=== PATIENT | female | born 1975 | race American Indian/Alaskan Native ===

== ENCOUNTER 2021-12-30 07:55 | Day surgery (SDC) | payer OTHER ==
[2021-12-28 10:09] LABS: Basophils % (Auto) 0.7 % (0.0-1.8); Eosinophils # (Auto) 0.5 K/mm3 (0.0-0.4); Eosinophils % (Auto) 6.3 % (0.0-4.3); Hematocrit 33.2 % (30.3-42.9); Hemoglobin 10.9 gm/dl (10.1-14.3); Lymphocytes # (Auto) 1.4 K/mm3 (1.2-5.4); Lymphocytes % (Auto) 19.1 % (13.4-35.0); Mean Corpuscular HGB Conc 33 % (30-34); Mean Corpuscular Volume 88 fl (79-97); Monocytes # (Auto) 0.4 K/mm3 (0.0-0.8); Monocytes % (Auto) 5.9 % (0.0-7.3); Platelet Count 304 K/mm3 (140-440); Red Blood Count 3.76 M/mm3 (3.65-5.03); Red Cell Distribution Width 13.4 % (13.2-15.2)
[2021-12-28 10:19] LABS: BUN/Creatinine Ratio 16; Blood Urea Nitrogen 13 mg/dL (7-17); Hemolysis Index 0
--- NOTE | 2021-12-28 13:42 | Anesthesia Consultation ---
Anesthesia Consult and Med Hx Date of service: 12/30/21 - Airway Anesthetic Teeth Evaluation: Good ROM Head & Neck: Adequate Mental/Hyoid Distance: Adequate Mallampati Class: Class II Intubation Access Assessment: Good - Pre-Operative Health Status ASA Pre-Surgery Classification: ASA3 Proposed Anesthetic Plan: General Nerve Block: TAP - Pulmonary Hx Smoking: No Hx Sleep Apnea: No - Cardiovascular System Hx Hypertension: Yes - Central Nervous System Hx Psychiatric Problems: No - Gastrointestinal Hx Gastroesophageal Reflux Disease: No - Hematic Hx Anemia: Yes - Other Systems Hx Cancer: No Hx Obesity: Yes (BMI 47)
[~2021-12-30 07:55] MED LIST: ACETAMINOPHEN 500 MG TAB PO ONE; CELECOXIB 200 MG CAP PO NR; LACTATED RINGERS 1,000 ML IV SCH; MAGNESIUM OXIDE 400 MG TAB PO ONE; MIDAZOLAM 2 MG/2 ML INJ IV NR; fentaNYL 100 MCG/2 ML INJ IV ONE
[2021-12-30] MEDS ORDERED: ACETAMINOPHEN 500 MG TAB ONE (08:20)
[2021-12-30] MEDS ORDERED: MAGNESIUM OXIDE 400 MG TAB PO ONE (08:21)
[2021-12-30] MEDS ORDERED: fentaNYL 100 MCG/2 ML INJ ONE ×2 (08:22→13:49)
[2021-12-30] MEDS ORDERED: ONDANSETRON 4 MG/2 ML INJ IV PRN (08:30)
[2021-12-30] MEDS ORDERED: HYDROmorphone 0.5 MG/0.5 ML INJ IV PRN ×2 (08:30)
[2021-12-30] MEDS ORDERED: NEOMY 40 MG/POLYMYXIN B 200,000 UNITS/ML (GU) AMPULE IR ONE ×2 (09:00→12:05)
[2021-12-30] MEDS ORDERED: METHYLENE BLUE 50 MG/10 ML AMP ONE (09:00)
[2021-12-30] MEDS ORDERED: LIDOCAINE MPF (2%) 20 MG/1 ML VIAL 5 ML ONE (09:07)
[2021-12-30] MEDS ORDERED: ROCURONIUM 50 MG/5 ML INJ IV ONE ×2 (09:07→13:12)
[2021-12-30] MEDS ORDERED: KETAMINE/STERILE WATER 50 MG/ML SYRINGE ONE (09:07)
[2021-12-30] MEDS ORDERED: ONDANSETRON 4 MG/2 ML INJ ONE (09:07)
[2021-12-30] MEDS ORDERED: KETOROLAC 30 MG/1 ML INJ ONE (09:07)
[2021-12-30] MEDS ORDERED: dexAMETHasone 20 MG/5 ML VIAL ONE (09:07)
[2021-12-30] MEDS ORDERED: propofoL 200 MG/20 ML VIAL IV ONE (09:07)
[2021-12-30] MEDS ORDERED: BUPIVACAINE/PF (0.25%) 2.5 MG/ML 30 ML VIAL INFILTRATI ONE (09:26)
[2021-12-30] MEDS ORDERED: dexAMETHasone 4 MG/ML VIAL ONE (09:26)
--- NOTE | 2021-12-30 10:19 | Short Stay Summary ---
Short Stay Documentation Date of service: 12/30/21 Narrative H&P: 46y/o with symptomatic uterine fibroids. The patient had a pelvic ultrasound that demonstrated an enlarged fibroid uterus measuring 12cm with 6.3cm dominant leiomyoma. She reports vaginal bleeding and pain. The patient has elected for definitive surgical management. - History Principal diagnosis: symptomatic uterine fibroids Past Medical History: other (morbid obesity; leiomyomas) Past Surgical History: Other (UFE) Social history: single - Allergies and Medications Current Medications: Allergies No Known Allergies Allergy (Unverified 12/27/21 10:18) Home Medications Medication Instructions Recorded Confirmed Last Taken Type Ergocalciferol [Vitamin D2] 1 cap PO 2XW 12/27/21 12/30/21 12/26/21 09:00 History Ferrous Sulfate [Feosol] 325 mg PO QDAY 12/27/21 12/30/21 12/29/21 09:00 History Telmisartan [Micardis] 20 mg PO DAILY 12/27/21 12/30/21 12/29/21 09:00 History hydroCHLOROthiazide [HCTZ] 25 mg PO DAILY PRN 12/27/21 12/30/21 12/29/21 09:00 History Testosterone [Testim 1%] 1 applicatio TD QAM 12/28/21 12/30/21 12/23/21 09:00 History Active Medications Celecoxib (Celecoxib 200 Mg Cap) 400 mg PO PREOP NR Stop: 12/30/21 23:59 Last Admin: 12/30/21 08:55 Dose: 400 mg Hydromorphone HCl (Hydromorphone 0.5 Mg/0.5 Ml Inj) 0.5 mg IV Q10MIN PRN PRN Reason: Pain , Severe (7-10) Stop: 12/30/21 18:00 Hydromorphone HCl (Hydromorphone 0.5 Mg/0.5 Ml Inj) 0.25 mg IV Q10MIN PRN PRN Reason: Pain, Moderate (4-6) Stop: 12/30/21 18:00 Lactated Ringer's (Lactated Ringers) 1,000 mls @ 125 mls/hr IV DIRECT DENAE Last Admin: 12/30/21 09:00 Dose: 125 mls/hr Cefazolin Sodium 3 gm/ Sodium (Chloride) 100 mls @ 100 mls/30 min IV PREOP NR; Protocol Stop: 12/30/21 23:59 Midazolam HCl (Midazolam 2 Mg/2 Ml Inj) 2 mg IV PREOP NR Stop: 12/30/21 23:59 Ondansetron HCl (Ondansetron 4 Mg/2 Ml Inj) 4 mg IV ONCE PRN PRN Reason: Nausea And Vomiting Stop: 12/30/21 18:00 - Physical exam General appearance: no acute distress Integumentary: no rash HEENT: Atraumatic Lungs: Clear to auscultation Breasts: deferred Heart: Regular rate Gastrointestinal: normal Female Genitourinary: deferred Rectal Exam: deferred Extremities: no ischemia - Brief post op/procedure progress note Date of procedure: 12/30/21 Pre-op diagnosis: Symptomatic uterine fibroids Post-op diagnosis: same Procedure: Robotic hysterectomy Left salpingo-oophorectomy Lysis of adhesions Anesthesia: GETA Surgeon: ALONSO KAUR Estimated blood loss: other (400 mL) Pathology: list (Uterus, cervix, leiomyomas, bilateral tubes, left ovary) Specimen disposition: to lab Condition: stable - Hospital course Hospital course: The patient was admitted the day of surgery underwent a robotic hysterectomy. Please see operative note for details of surgery. Her postoperative course was uneventful. - Disposition Condition at discharge: Good Disposition: 01 HOME / SELF CARE / HOMELESS Short Stay Discharge Plan Activity: no restrictions (Pelvic rest for 6 weeks) Diet: regular Additional Instructions: Schedule follow-up with Dr. Kaur in 4 weeks Prescriptions: Docusate Sodium [Colace] 100 mg PO BID PRN #60 capsule PRN Reason: Constipation Ibuprofen [Motrin] 800 mg PO Q8HR PRN #60 tablet PRN Reason: Pain , Severe (7-10) oxyCODONE /ACETAMINOPHEN [Percocet 5/325] 1 tab PO Q6HR PRN #30 tablet PRN Reason: Pain
[2021-12-30] MEDS ORDERED: SODIUM CHLORIDE 0.9% 100 ML ONE (11:32)
[2021-12-30] MEDS ORDERED: VASOPRESSIN 20 UNIT/1 ML INJ ONE (11:33)
[2021-12-30] MEDS ORDERED: HYDROmorphone 1 MG/1 ML INJ ONE (11:35)
[2021-12-30] MEDS ORDERED: SODIUM CHLORIDE 0.9% 100 ML IVPB IV ONE (12:10)
[2021-12-30] MEDS ORDERED: SODIUM CHLORIDE 0.9% 500 ML IVPB IRRIGATION ONE (12:10)
[2021-12-30] MEDS ORDERED: VASOPRESSIN 20 UNIT/1 ML INJ IV ONE (12:10)
[2021-12-30] MEDS ORDERED: SUGAMMADEX SODIUM 200 MG/2 ML VIAL IV ONE (12:43)
[2021-12-30] MEDS ORDERED: LACTATED RINGERS 1,000 ML ONE (13:12)
--- NOTE | 2021-12-30 14:41 | Operative Report ---
Operative Report Operative Report: Date of surgery: December 30, 2021 Preoperative diagnoses: Symptomatic uterine fibroid Postoperative diagnoses: Same as above; pelvic adhesive disease; left ovarian mass Procedure: Robotic hysterectomy; bilateral salpingectomy; left oophorectomy; lysis of adhesions Surgeon: Carina Russo M.D. Middleware Engineer: Khalida Keller Anesthesia: Gen. endotracheal anesthesia Estimated blood loss: 400 mL Pathology: Uterus, cervix, leiomyomas, bilateral tubes, left ovary Indication: 46-year-old -0-2-0 with a history of symptomatic uterine fibroids. The patient had findings of enlarged fibroid uterus and elected to undergo definitive surgical management Procedure: The patient was taken to the operating room and given general endotracheal anesthesia without complication after a time out was performed confirming the surgery and identity of the patient. She was prepped and draped in a normal sterile fashion. A bivalve speculum was placed in the patient's vagina and a single-tooth tenaculum placed on the anterior lip of the cervix. The uterus was sounded with the uterine sound. A stay suture with 0-vicryl was placed at 12 o'clock on the anterior cervix. A [employer] uterine manipulator was placed in the bivalve speculum was then removed. A warm laparotomy sponge was placed in the vagina. Attention was then turned to the patient's abdomen where a 12millimeter supra umbilical skin incision was then made. A Veress needle was placed and peritoneal entry was verified water-filled syringe. Insufflation of the peritoneal cavity was performed with CO2 gas. The 12 mm trocar was then placed under direct visualization. An additional 8 mm robotic trocar was placed on the patient's left and right lateral side just opposite of the supraumbilical trocar. An additional 5 mm right lateral trocar was then placed as the accessory port. The supraumbilical 12 mm trocar site was closed with the Bobby Ramos device and 0-vicryl suture. The patient was then placed in steep Trendelenburg. The da [employer] robot was then engaged. A fenestrated forcep was placed in arm 2 and a vessel sealer was placed in arm 1. General survey of the abdomen and pelvis revealed a markedly enlarged fibroid uterus with multiple leiomyomas the left ovary was significantly enlarged. There were multiple adhesions to the posterior aspect of the uterus and the anterior peritoneum was adherent to the lower uterine segment of the uterus. The uterus was adherent to the left pelvic sidewall. the surgeon then transferred to the surgical console. Lysis of adhesions had to be performed in order to detach the uterus from the left pelvic sidewall with the monopolar scissors. A myomectomy was performed after injecting diluted Pitressin to decompress the uterus to improve visualization. The bowel adhesions to the posterior uterus were also lysed. The mesosalpinx was then isolated on the right. The vessel sealer was used to coagulate the mesosalpinx which was then transected. The tube was transected from the ovary. The tubo-ovarian ligament was then coagulated and transected. The round ligament was then coagulated and transected also. The vesicouterine peritoneum was then entered from the patient's right side. The uterine vessels were then coagulated with the vessel sealer. The vessels were then transected . Attention was then turned to the patient's left side. Secondary to the large nature of the left ovary the infundibulopelvic ligament was isolated coagulated and transected. Multiple adhesions had to be lysed in order to retract the adherent adnexa from the pelvic sidewall. The vesical peritoneum was then entered from the left and joined in the midline. Peritoneum was reflected off of the lower uterine segment. Uterine vessels were then coagulated and then transected. The blood supply to the uterus was adequately contained. Secondary to the adhesions of the lower aspect of the posterior cervix could not be clearly identified so the decision was made to proceed first with a supracervical hysterectomy once the blood supply was contained. Visualization was improved once the corpus uterus was removed. The V care ring was visualized. Posterior colpotomy was created with the monopolar scissors. The incision was continued circumferentially until anterior colpotomy was made. The cervix and uterus were amputated from the vaginal cuff. The uterus was then removed along with the tubes bilaterally, leiomyomas, and the left ovary through the vagina and a warm laparotomy sponge was placed and maintain the pneumoperitoneum. The vaginal cuff was then closed in a running fashion with V lock suture. Irrigation of the pelvis was performed. Surgicel powder was applied to the incision. The [employer] robot was undocked. The trocars were removed and the insuffliation was released. The skin was then reapproximated with 4-0 Monocryl. The tissue was sent to pathology which included the cervix, bilateral tubes, leiomyomas, left ovary and uterus. The patient was then successfully extubated. She was then taken to the recovery room in stable condition. All sponge laps and needle counts were correct x2.
[2021-12-30 17:30] VITALS: BP 148/86
--- NOTE | 2021-12-30 18:03 | Post Anesthesia Evaluation ---
- Post Anesthesia Evaluation Patient Participated: Yes Airway Patent: Yes Stable Respiratory Function: Yes Nausea/Vomiting: No Temp > 96.8F: Yes Pain Manageable: Yes Adequeate Hydration: Yes Anesthesia Complications: No Block Receding Appropriately: Yes Patient on Ventilator: No
== END 2021-12-30 16:40 | disposition home or self-care (01) ==
LOC: OR 07:55
PROVIDERS: ATTEND Obstetrics & Gynecology
DX: N93.8 Other specified abnormal uterine and vaginal bleeding (principal); D25.9 Leiomyoma of uterus, unspecified; N80.0 Endometriosis of uterus; N85.8 Other specified noninflammatory disorders of uterus; D64.9 Anemia, unspecified; I10 Essential (primary) hypertension; E66.9 Obesity, unspecified; Z20.822 Contact with and (suspected) exposure to COVID-19; Z98.890 Other specified postprocedural states; Z79.899 Other long term (current) drug therapy; Z90.710 Acquired absence of both cervix and uterus; Z68.42 Body mass index [BMI] 45.0-49.9, adult
CPT/HCPCS: 36415; 58573; 64488; 80048; 84703; 85025; 86850; 86900; 86901; 88307; J0690; J1100; J1170; J1885; J2250; J2405; J2704; J3010; J3490; J7040; J7120; U0003; Q9968

== ENCOUNTER 2021-12-31 16:52 | Emergency (ER) | payer OTHER ==
--- NOTE | 2021-12-31 18:03 | XRay Report ---
CHEST 1 VIEW INDICATION / CLINICAL INFORMATION: sob. COMPARISON: None available. FINDINGS: SUPPORT DEVICES: None. HEART / MEDIASTINUM: No significant abnormality. LUNGS / PLEURA: Haziness is seen in the right lung base which may be due to overlying breast tissue r ather than true pulmonary abnormality. No pneumothorax. ADDITIONAL FINDINGS: There is questionable free air underneath the right hemidiaphragm. IMPRESSION: 1. Questionable free air noted underneath the right hemidiaphragm. 2. Haziness seen in the right lung base. Whether this represents extrathoracic soft tissue versus johanne e right basilar pleural-parenchymal disease is unclear. CT scan may provide additional evaluation for the questionable free air as well as for findings in the right right lung base. Signer Name: Kim Hudson MD Signed: 12/31/2021 5:58 PM Workstation Name: [id number]
[2021-12-31 18:26] LABS: Basophils # (Auto) 0.1 K/mm3 (0.0-0.1); Basophils % (Auto) 0.6 % (0.0-1.8); Eosinophils % (Auto) 0.3 % (0.0-4.3); Hematocrit 30.4 % (30.3-42.9); Hemoglobin 9.9 gm/dl (10.1-14.3); Lymphocytes # (Auto) 1.6 K/mm3 (1.2-5.4); Mean Corpuscular HGB Conc 32 % (30-34); Mean Corpuscular Volume 88 fl (79-97); Monocytes # (Auto) 0.6 K/mm3 (0.0-0.8); Monocytes % (Auto) 6.4 % (0.0-7.3); Platelet Count 286 K/mm3 (140-440); Red Blood Count 3.45 M/mm3 (3.65-5.03); Red Cell Distribution Width 13.7 % (13.2-15.2)
[2021-12-31 18:41] LABS: BUN/Creatinine Ratio 11; Blood Urea Nitrogen 10 mg/dL (7-17); Calcium 8.8 mg/dL (8.4-10.2); Hemolysis Index 2
--- NOTE | 2021-12-31 19:16 | Emergency Department Report ---
ED Shortness of Breath HPI - General Chief Complaint: Dyspnea/Respdistress Stated Complaint: SHORTNESS OF BREATH Time Seen by Provider: 12/31/21 17:27 Source: patient Mode of arrival: Ambulatory Limitations: No Limitations - History of Present Illness Initial Comments: 46-year-old female with a past medical history of obesity hypertension presents to the hospital complaining of shortness of breath today. Yesterday patient had a robotic total hysterectomy performed by Dr. Rasheed. Patient states that she is only having mild vaginal spotting and pain has improved today. This was an outpatient procedure. Today while sitting on a couch she developed shortness of breath that is somewhat worse with exertion. She complains of a mild nonproductive cough without fever. Recent labs reviewed and patient had a hemoglobin of 10.9 and a negative COVID test performed on December 28. Patient did have an episode of some left-sided chest pain that improved with belching and has not reoccurred. Patient denies current calf tenderness, leg edema, or his tory of PE/DVT - Related Data Home Medications Medication Instructions Recorded Confirmed Last Taken Ergocalciferol [Vitamin D2] 1 cap PO 2XW 12/27/21 12/30/21 12/26/21 09:00 Ferrous Sulfate [Feosol] 325 mg PO QDAY 12/27/21 12/30/21 12/29/21 09:00 Telmisartan [Micardis] 20 mg PO DAILY 12/27/21 12/30/21 12/29/21 09:00 hydroCHLOROthiazide [HCTZ] 25 mg PO DAILY PRN 12/27/21 12/30/21 12/29/21 09:00 Testosterone [Testim 1%] 1 applicatio TD QAM 12/28/21 12/30/21 12/23/21 09:00 Previous Rx's Medication Instructions Recorded Last Taken Type Docusate Sodium [Colace] 100 mg PO BID PRN #60 capsule 12/30/21 Unknown Rx Ibuprofen [Motrin] 800 mg PO Q8HR PRN #60 tablet 12/30/21 Unknown Rx oxyCODONE /ACETAMINOPHEN [Percocet 1 tab PO Q6HR PRN #30 tablet 12/30/21 Unknown Rx 5/325] Allergies Allergy/AdvReac Type Severity Reaction Status Date / Time No Known Allergies Allergy Unverified 12/27/21 10:18 ED Review of Systems ROS: Stated complaint: SHORTNESS OF BREATH Other details as noted in HPI Comment: All other systems reviewed and negative ED Past Medical Hx - Past Medical History Previous Medical History?: Yes Hx Hypertension: Yes - Surgical History Past Surgical History?: Yes Additional Surgical History: Robotic hysterectomy - Social History Smoking Status: Never Smoker - Medications Home Medications: Home Medications Medication Instructions Recorded Confirmed Last Taken Type Ergocalciferol [Vitamin D2] 1 cap PO 2XW 12/27/21 12/30/21 12/26/21 09:00 H istory Ferrous Sulfate [Feosol] 325 mg PO QDAY 12/27/21 12/30/21 12/29/21 09:00 History Telmisartan [Micardis] 20 mg PO DAILY 12/27/21 12/30/21 12/29/21 09:00 History hydroCHLOROthiazide [HCTZ] 25 mg PO DAILY PRN 12/27/21 12/30/21 12/29/21 09:00 History Testosterone [Testim 1%] 1 applicatio TD QAM 12/28/21 12/30/21 12/23/21 09:00 History Docusate Sodium [Colace] 100 mg PO BID PRN #60 capsule 12/30/21 Unknown Rx Ibuprofen [Motrin] 800 mg PO Q8HR PRN #60 tablet 12/30/21 Unknown Rx oxyCODONE /ACETAMINOPHEN [Percocet 1 tab PO Q6HR PRN #30 tablet 12/30/21 Unknown Rx 5/325] ED Physical Exam - General Limitations: No Limitations - Other Other exam information: General: No acute distress Head: Atraumatic Eyes: normal appearance ENT: Moist mucous membranes Neck: Normal appearance, no midline tenderness Chest: Clear to auscultation bilaterally, chest wall nontender CV: Regular rate and rhythm Abdomen: Soft, normal bowel sounds, very mild suprapubic tenderness, no ndistended, no rebound or guarding Back: Normal inspection Extremity: Normal inspection, full range of motion, no calf tenderness or leg edema Neuro: Alert O x 3, no facial asymmetry, speech clear, no gross motor sensory deficit Psych: Appropriate behavior Skin: No rash ED Course Vital Signs 12/31/21 17:07 Temperature 98.8 F Pulse Rate 100 H Respiratory 24 Rate Blood Pressure 138/75 [Right] O2 Sat by Pulse 96 Oximetry - Reevaluation(s) Reevaluation #1: 12/31/21 20: 15 Room air saturation 99% ED Medical Decision Making - Lab Data Result diagrams: 12/31/21 17:46 12/31/21 17:46 Lab Results 12/31/21 12/31/21 12/31/21 Range/Units 17:46 17:46 17:46 WBC 9.5 (4.5-11.0) K/mm3 RBC 3.45 L (3.65-5.03) M/mm3 Hgb 9.9 L (10.1-14.3) gm/dl Hct 30.4 (30.3-42.9) % MCV 88 (79-97) fl MCH 29 (28-32) pg MCHC 32 (30-34) % RDW 13.7 (13.2-15.2) % Plt Count 286 (140-440) K/mm3 Lymph % (Auto) 17.0 (13.4-35.0) % [place] % (Auto) 6.4 (0.0-7.3) % Eos % (Auto) 0.3 (0.0-4.3) % Baso % (Auto) 0.6 (0.0-1.8) % Lymph # (Auto) 1.6 (1.2-5.4) K/mm3 [place] # (Auto) 0.6 (0.0-0.8) K/mm3 Eos # (Auto) 0.0 (0.0-0.4) K/mm3 Baso # (Auto) 0.1 (0.0-0.1) K/mm3 Seg Neutrophils % 75.7 H (40.0-70.0) % Seg Neutrophils # 7.2 (1.8-7.7) K/mm3 Sodium 138 (137-145) mmol/L Potassium 3.8 (3.6-5.0) mmol/L Chloride 104.1 (98-107) mmol/L Carbon Dioxide 26 (22-30) mmol/L Anion Gap 12 mmol/L BUN 10 (7-17) mg/dL Creatinine 0.9 (0.6-1.2) mg/dL Estimated GFR > 60 ml/min BUN/Creatinine Ratio 11 % Glucose 92 (65-100) mg/dL Calcium 8.8 (8.4-10.2) mg/dL NT-Pro-B Natriuret Pep 358.5 (0-450) pg/mL - EKG Data -: EKG Interpreted by Me EKG shows normal: sinus rhythm, ST-T waves (No STEMI or ST elevation) Rate: normal (79) - Radiology Data Radiology results: report reviewed CHEST 1 VIEW INDICATION / CLINICAL INFORMATION: sob. COMPARISON: None available. FINDINGS: SUPPORT DEVICES: None. HEART / MEDIASTINUM: No significant abnormality. LUNGS / PLEURA: Haziness is seen in the right lung base which may be due to overlying breast tissue rather than true pulmonary abnormality. No pneumothorax. ADDITIONAL FINDINGS: There is questionable free air underneath the right hemidiaphragm. IMPRESSION: 1. Questionable free air noted underneath the right hemidiaphragm. 2. Haziness seen in the right lung base. Whether this represents extrathoracic soft tissue versus true right basilar pleural-parenchymal disease is unclear. CT scan may provide additional evaluation for the questionable free air as well as for findings in the right right lung base. CTA CHEST WITH CONTRAST INDICATION / CLINICAL INFORMATION: sob, recent hysterectomy. TECHNIQUE: Axial CT images were obtained through the chest after injection of IV contrast. 3 plane MIP and/or 3D reconstructions were produced. All CT scans at this location are performed using CT dose reduction for ALARA by means of automated exposure control. COMPARISON: None available. FINDINGS: PULMONARY EMBOLUS: None. THORACIC AORTA: No significant abnormality. HEART: No significant abnormality. CORONARY ARTERY CALCIFICATION: Absent -- None. MEDIASTINUM / ADRIANA: No significant abnormality. PLEURA: No pleural effusion. No pneumothorax. LUNGS: No acute air space or interstitial disease. Atelectatic changes are noted in the lung bases. ADDITIONAL FINDINGS: None. UPPER ABDOMEN: Small amount of free air is noted in the included upper abdomen. There is also a small amount of gas in the anterior abdominal deep subcutaneous fat.. SKELETAL STRUCTURES: No significant osseous abnormality. IMPRESSION: 1. No CT evidence for pulmonary embolism. 2. Lungs are clear aside from mild atelectatic changes in the bases. 3. Upper abdominal pneumoperitoneum and gas in the anterior abdominal wall is likely related to recent surgery given the history of recent hysterectomy. - Medical Decision Making 46-year-old beast female presents to the hospital with postoperative dyspnea. CT angiogram negative for pulmonary embolism. Mild atelectasis noted as well as intraperitoneal air from recent laparoscopic procedure. Patient has mild anemia with hemoglobin 9.9 and does not require blood transfusion at this time. EKG unremarkable without complaints of chest pain. No hypoxia noted. Initial tachycardia during triage improved spontaneously. I suspect that dyspnea may be related to increased intra-abdominal pressure from abdominal pain and mild atelectasis. Incentive spirometer with teaching will be provided. Outpatient follow-up encouraged Critical Care Time: No Critical care attestation.: If time is entered above; I have spent that time in minutes in the direct care of this critically ill patient, excluding procedure time. ED Disposition Clinical Impression: Dyspnea, Status post laparoscopic hysterectomy, Atelectasis, Anemia Disposition: HOME / SELF CARE / HOMELESS Is pt being admited?: No Does the pt Need Aspirin: No Condition: Stable Instructions: Shortness of Breath, Adult, [id number], How to Use an Incentive Spirometer, Atelectasis, Adult Additional Instructions: Use incentive spirometer as directed. Follow-up with your doctor or doctor/clinic provided. Return if symptoms worsen as indicated by your discharge instructions. Referrals: JENNIFER CHANDLER MD [Staff Physician] - 3-5 Days (Primary care doctor) ALONSO KAUR MD [Staff Physician] - 3-5 Days ([employer] doctor) Time of Disposition: 20:28
--- NOTE | 2021-12-31 19:39 | Cat Scan Report ---
CTA CHEST WITH CONTRAST INDICATION / CLINICAL INFORMATION: sob, recent hysterectomy. TECHNIQUE: Axial CT images were obtained through the chest after injection of IV contrast. 3 plane ME P and/or 3D reconstructions were produced. All CT scans at this location are performed using CT dose reduction for ALARA by means of automated exposure control. COMPARISON: None available. FINDINGS: PULMONARY EMBOLUS: None. THORACIC AORTA: No significant abnormality. HEART: No significant abnormality. CORONARY ARTERY CALCIFICATION: Absent -- None. MEDIASTINUM / ADRIANA: No significant abnormality. PLEURA: No pleural effusion. No pneumothorax. LUNGS: No acute air space or interstitial disease. Atelectatic changes are noted in the lung bases. ADDITIONAL FINDINGS: None. UPPER ABDOMEN: Small amount of free air is noted in the included upper abdomen. There is also a small amount of gas in the anterior abdominal deep subcutaneous fat.. SKELETAL STRUCTURES: No significant osseous abnormality. IMPRESSION: 1. No CT evidence for pulmonary embolism. 2. Lungs are clear aside from mild atelectatic changes in the bases. 3. Upper abdominal pneumoperitoneum and gas in the anterior abdominal wall is likely related to recen t surgery given the history of recent hysterectomy. Signer Name: Panchito Hansen MD Signed: 12/31/2021 7:35 PM Workstation Name: [id number]
[2021-12-31 23:22] VITALS: BP 123/79
--- NOTE | 2022-01-02 13:09 | Electrocardiograph Report ---
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
== END 2021-12-31 21:30 | disposition home or self-care (01) ==
LOC: ED 16:52
DX: J98.11 Atelectasis (principal); D64.9 Anemia, unspecified; R06.02 Shortness of breath; Z90.710 Acquired absence of both cervix and uterus; I10 Essential (primary) hypertension
CPT/HCPCS: 36415; 71045; 71275; 80048; 83880; 85025; 93005; 99284; Q9967